=== PATIENT | male | born 1990 | race Caucasian/White ===

== ENCOUNTER 2018-06-12 15:33 | Emergency (ER) | payer BC, OTHER ==
[2018-06-12 15:48] VITALS: BP 143/85
--- NOTE | 2018-06-12 16:50 | UC ---
Hand/Wrist HPI - HPI Summary HPI Summary: 28 y/o male presents to the urgent care c/o Rt wrist pain for the past 4 days. 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 On Saturday06/10/2018, he woke up and his RT wrist was swollen and pain worsen w/ movement. he has not taken any medication to alleviate pain. Pt denies Hx of injury to that wrist or numbness or tingling sensation over the RT hand. Pain is 8/10 w/ movement w/ radiation on the medial side of the forearm and 2/10 at rest. Pt denies fever, SOB, chest pain, abdominal pain, N/v/D. - History Of Current Complaint Chief Complaint: UCUpperExtremity Stated Complaint: WRIST PAIN Time Seen by Provider: 06/12/18 16:39 Hx Obtained From: Patient Onset/Duration: Gradual Onset, Lasting Days - 4 days, Still Present, Worse Since - today Severity Initially: Mild Severity Currently: Moderate Pain Intensity: 8 Pain Scale Used: 0-10 Numeric Character Of Pain: Sharp Aggravating Factor(s): Movement, Lifting, Pulling Alleviating Factor(s): Rest, Ice Associated Signs And Symptoms: Positive: Swelling. Negative: Redness, Bruising , Fever, Weakness, Numbness/Tingling Related History: Dominant Hand Right - Risk Factors Compartment Syndrome Risk Factors: Pain - Allergies/Home Medications Allergies/Adverse Reactions: Allergies Allergy/AdvReac Type Severity Reaction Status Date / Time No Known Allergies Allergy Verified 06/12/18 15:48 PMH/Surg Hx/FS Hx/Imm Hx Previously Healthy: Yes - Pt denies PMHX - Surgical History Surgical History: None - Family History Known Family History: Positive: Hypertension - Social History Occupation: Employed Full-time Lives: With Family Alcohol Use: Occasionally Substance Use Type: None Smoking Status (MU): Heavy Every Day Tobacco Smoker Review of Systems All Other Systems Reviewed And Are Negative: Yes Constitutional: Positive: Negative Skin: Positive: Negative Eyes: Positive: Negative ENT: Positive: Negative Respiratory: Positive: Negative Cardiovascular: Positive: Negative Gastrointestinal: Positive: Negative Genitourinary: Positive: Negative Motor: Positive: Negative Neurovascular: Positive: Negative Musculoskeletal: Positive: Decreased ROM - RT wrist, Other: - RT wrist pain and swelling Neurological: Positive: Negative Psychological: Positive: Negative Is Patient Immunocompromised?: No Physical Exam - Summary Physical Exam Summary: Vital Signs Reviewed: Yes General: Well-Appearing, No Pain Distress, Well-Nourished male w/o any apparent pain distress. Eyes: Positive: Conjunctiva Clear - PERRLA, EOMI ENT: Positive: Normal ENT inspection, Hearing grossly normal, Pharynx normal, TMs normal, Uvula midline Neck: Positive: Supple, Nontender, No Lymphadenopathy Respiratory: Positive: Chest non-tender, Lungs clear, Normal breath sounds, No respiratory distress Cardiovascular: Positive: RRR, No Murmur, Pulses Normal, Brisk Capillary Refill Abdomen Description: Positive: Nontender, No Organomegaly, Soft. Negative: CVA Tenderness (R), CVA Tenderness (L) Bowel Sounds: Positive: Present Musculoskeletal: Positive: Strength Intact, Other: Neurological Exam: Normal Musculoskeletal: Positive: Wrist: the R wrist is without obvious asymmetry or deformity when compared to the L wrist. No surface trauma, open wounds, swelling, or obvious deformity. No overlying erythema or warmth. No bony crepitus. Point tenderness over the thenar eminence and ventral side of wrist and medial aspect of the tumb and wrist. No scaphoid fullness or tenderness to direct palpation or axial load. Decreased ROM due to pain. Motor/sensory function of ulnar, radial, median nerves intact. Ulnar and radial pulses intact. Negative Phalens/Tinels sign Positive Galilea test. Psychological Exam: Normal Skin Exam: Normal Triage Information Reviewed: Yes Vital Signs: Initial Vital Signs Temp 98.4 F 06/12/18 15:44 Pulse 61 06/12/18 15:44 Resp 18 06/12/18 15:44 BP 143/85 06/12/18 15:44 Pulse Ox 100 06/12/18 15:44 Hand/Wrist Course/Dx - Course Course Of Treatment: 28 y/o male presents to the urgent care c/o Rt wrist pain for the past 4 days. 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 On Saturday06/10/2018, he woke up and his RT wrist was swollen and pain worsen w/ movement. he has not taken any medication to alleviate pain. Pt denies Hx of injury to that wrist or numbness or tingling sensation over the RT hand. Pain is 8/10 w/ movement w/ radiation on the medial side of the forearm and 2/10 at rest. Pt denies fever, SOB, chest pain, abdominal pain, N/v/D. Hx obtained. Pt is Filkenstein positive on examination. Pt given at the clinic Ibuprofen 800mg PO by the nurse. Pt tolerated well medication and felt better. RT wrist X-ray ordered. Impression: There was no fracture, dislocation, soft tissue swelling or FB noted. Pt Probably w/ Rt wrist De Quervain Tenosynovitis. Pts wrist immobilized with thumb spica splint. Advised RICE: Rest, Ice, elevation, Ibuprofen PO. There was no neurovascular compromise after splint application placed by nurse; the splint was in good alignment and the pt had good sensation and capillary refill at the time of discharge.Pt advised to f/u w/ [facility] if not improvement of symptoms in 1 week. Pt's BP is elevated today advised to decrease salt in diet, monitor BP and f/u with PCP for further management. Pt understood and agreed w/ plan of care. - Differential Dx/Diagnosis Differential Diagnosis/HQI/PQRI: Carpal Tunnel Syndrome, Cellulitis, Contusion, Fracture, Sprain, Strain, Tendonitis, Tenosynovitis Provider Diagnosis: De Quervain's tenosynovitis, right, Right wrist pain, Elevated BP without diagnosis of hypertension Discharge - Sign-Out/Discharge Documenting (check all that apply): Patient Departure - D/c home All imaging exams completed and their final reports reviewed: Yes - Discharge Plan Condition: Stable Disposition: HOME Prescriptions: Ibuprofen TAB* [Motrin TAB* 800 MG] 800 mg PO Q6H PRN #30 tab PRN Reason: Pain Patient Education Materials: De Quervain Disease (ED) Referrals: Mabel Edmond MD [Primary Care Provider] - 1 Week Eulalio Adams MD [Medical Doctor] - 3 Days Additional Instructions: 1-Please take Ibuprofen PO q6-8hrs prn after meals directed to alleviate pain and swelling. Immerse your wrist in ice water to decrease swelling 2-Please apply ice, keep your wrist immobilized with the splint. Avoid heavy lifting. strenuous exercise or heavy lifting. 3- Please f/u with Orthopedic Dr Adams or your PCP in 1 week is not improvement of symptoms for further evaluation and treatment. 4- Your BP is elevated today. please decrease salt in your diet, monitor BP and if it continues to be elevated please f/u with your PCP for further management. - Billing Disposition and Condition Condition: STABLE Disposition: Home
[2018-06-12] MEDS ORDERED: Ibuprofen TAB* 400 MG PO ONE (16:58)
== END 2018-06-12 17:20 | disposition home or self-care (01) ==
LOC: UCEAST 15:33
DX: M65.4 Radial styloid tenosynovitis [de Quervain] (principal); R03.0 Elevated blood-pressure reading, without diagnosis of hypertension; F17.210 Nicotine dependence, cigarettes, uncomplicated
CPT/HCPCS: 99213; A9270-GY; G0463